=== PATIENT | female | born 1995 | race African-American/Black ===

== ENCOUNTER 2021-07-04 15:21 | Emergency (ER) | payer BC ==
[~2021-07-04] VITALS: Ht 154.9 cm; Wt 54.5 kg
[2021-07-04] MEDS ORDERED: OMEP40CA4 PO (19:03)
[2021-07-04 20:18] VITALS: BP 117/61
== END 2021-07-04 20:20 | disposition home or self-care (01) ==
LOC: M ED 15:21
DX: R09.89 Other specified symptoms and signs involving the circulatory and respiratory systems (principal)